=== PATIENT | male | born 2000 | race Caucasian/White ===

== ENCOUNTER 2019-10-27 18:54 | Emergency (ER) | payer OTHER ==
[2019-10-27 21:24] LABS: Urine Blood NEGATIVE (NEG); Urine Glucose NEGATIVE (NEG); Urine Protein NEGATIVE (NEG); Urine Specific Gravity 1.025 (1.005-1.030); Urine pH 7.5 (5.0-7.0)
--- NOTE | 2019-10-27 22:13 | ER ---
Nurse's Notes [facility] Name: Bryson Gibbons Age: 18 yrs Sex: Male : 2000 Arrival Date: 10/27/2019 Time: 18:58 Bed 5 Private MD: Diagnosis: Hydrocele and spermatocele Presentation: 10/26 19:01 Chief complaint: Patient states: Noticed lump to right testicle with discomfort for ll1 past 3 years. Went to ER, but never followed up. Came today for follow-up. Coronavirus screen: Proceed with normal triage. Patient denies a cough. Patient denies shortness of breath or difficulty breathing. Patient denies measured and/or subjective temperature greater than 100.4F prior to today's visit. Patient denies travel on a cruise ship or to a country the [facility] currently lists as an affected area. Patient denies contact with known and/or suspected case of COVID-19. Ebola Screen: Patient denies travel to an Ebola-affected area in the 21 days before illness onset. Initial Sepsis Screen: Does the patient meet any 2 criteria? HR > 90 bpm. No. Patient's initial sepsis screen is negative. Risk Assessment: Do you want to hurt yourself or someone else? Patient reports no desire to harm self or others. Onset of symptoms was October 25, 2016. 19:01 Method Of Arrival: Ambulatory 1 19:01 Acuity: AD 4 ll1 20:38 Initial Sepsis Screen: Does the patient have a suspected source of infection? No. jd3 Patient's initial sepsis screen is negative. Historical: - Allergies: 19:03 No Known Allergies; ll1 - Immunization history:: Adult Immunizations up to date, Flu vaccine is not up to date. - Social history:: Smoking status: Patient denies any tobacco usage or history of. Patient uses street drugs, marijuana, Patient/guardian denies using alcohol, street drugs, tobacco products. Screenin:38 Abuse screen: Denies threats or abuse. Nutritional screening: No deficits noted. jd3 Tuberculosis screening: No symptoms or risk factors identified. Fall Risk None identified. Assessment: 19:47 Reassessment: Patient appears in no apparent distress at this time. awaiting ultrasound sg at this time. 20:36 General: Appears in no apparent distress. uncomfortable, Behavior is calm, cooperative, jd3 appropriate for age. Pain: Complains of pain in groin Quality of pain is described as aching. Neuro: Level of Consciousness is awake, alert, obeys commands, Oriented to person, place, time, situation. Cardiovascular: Denies chest pain, Capillary refill < 3 seconds Patient's skin is warm and dry. Respiratory: Airway is patent Respiratory effort is even, unlabored, Respiratory pattern is regular, symmetrical. GI: No signs and/or symptoms were reported involving the gastrointestinal system. : Reports lump on the scrotum that has become uncomfortable. EENT: No signs and/or symptoms were reported regarding the EENT system. Derm: Skin is intact, Skin is dry, Skin is normal, Skin temperature is warm. Musculoskeletal: Circulation, motion, and sensation intact. Range of motion: intact in all extremities. 21:17 Reassessment: Patient appears in no apparent distress at this time. Patient and/or jd3 family updated on plan of care and expected duration. Pain level reassessed. Patient is alert, oriented x 3, equal unlabored respirations, skin warm/dry/pink. awaiting ultrasound. 21:46 Reassessment: Patient appears in no apparent distress at this time. Patient and/or jd3 family updated on plan of care and expected duration. Pain level reassessed. Patient is alert, oriented x 3, equal unlabored respirations, skin warm/dry/pink. Ultrasound at bedside. 22:38 Reassessment: Patient appears in no apparent distress at this time. Patient and/or jd3 family updated on plan of care and expected duration. Pain level reassessed. Patient is alert, oriented x 3, equal unlabored respirations, skin warm/dry/pink. Patient states feeling better. Vital Signs: 19:01 BP 138 / 84; Pulse 93; Resp 17; Temp 98.0; Pulse Ox 100% ; Pain 2/10; ll1 22:38 BP 120 / 78; Pulse 89; Resp 17 S; Pulse Ox 100% on R/A; jd3 ED Course: 18:58 Patient arrived in ED. ag5 19:03 Triage completed. ll1 19:04 Arm band placed on Patient placed in an exam room, on a stretcher. ll1 19:09 Siddharth Clement NP is PHCP. pm1 19:09 Jose Lou MD is Attending Physician. pm1 20:36 Prosper Villarreal, RHEA is Primary Nurse. jd3 20:38 Patient has correct armband on for positive identification. Bed in low position. Call jd3 light in reach. Side rails up X 1. Adult w/ patient. Pulse ox on. NIBP on. 22:12 Ricky Hernandez MD is Referral Physician. pm1 22:30 Primary Nurse role handed off by Prosper Villarreal RN sg 22:38 Prosper Villarreal RN is Primary Nurse. jd3 22:39 No provider procedures requiring assistance completed. Patient did not have IV access jd3 during this emergency room visit. 23:07 US Scrotum Testicles In Process Unspecified. EDMS 23:07 US Scrotum Testicles In Process Unspecified. EDMS Administered Medications: No medications were administered Outcome: 22:12 Discharge ordered by MD. pm1 22:39 Patient left the ED. sg 22:39 Discharged to home ambulatory, with family. jd3 22:39 Condition: stable 22:39 Discharge instructions given to patient, Instructed on discharge instructions, follow up and referral plans. Demonstrated understanding of instructions, follow-up care. Signatures: Dispatcher [employer] EDMS Geraldo Toledo RN RN sg Siddharth Clement, ADMISSIONS OFFICER ADMISSIONS OFFICER pm1 Grey Soares Prosper Villarreal, RHEA RN Yesi Tinsley ag5 Tylor Raphael RN RN ll1 Corrections: (The following items were deleted from the chart) 19:07 19:01 Chief complaint: Patient states: Noticed lump to right testicle with discomfort ll1 for past 3 years. Went to ER, but never followed up. ll1 20:51 20:51 Urine collected: oe oe 22:39 22:29 Patient left the ED. sg sg
--- NOTE | 2019-10-27 22:14 | EDPHYS ---
Physician Documentation [facility] Name: Bryson Gibbons Age: 18 yrs Sex: Male : 2000 Arrival Date: 10/27/2019 Time: 18:58 Bed 5 Private MD: ED Physician Jose Lou HPI: 10/26 19:45 This 18 yrs old Male presents to ER via Ambulatory with complaints of pm1 Testicular Pain. 19:45 The patient presents with tenderness, of the right testicle. Onset: The pm1 symptoms/episode began/occurred 3 year(s) ago, and became worse today. Modifying factors: The symptoms are alleviated by nothing, the symptoms are aggravated by nothing. Associated signs and symptoms: Pertinent negatives: abdominal pain, dysuria, fever, hematuria, nausea, vomiting. Severity of symptoms: in the emergency department the symptoms are actually worse. The patient has not recently seen a physician. Historical: - Allergies: 19:03 No Known Allergies; ll1 - Immunization history:: Adult Immunizations up to date, Flu vaccine is not up to date. - Social history:: Smoking status: Patient denies any tobacco usage or history of. Patient uses street drugs, marijuana, Patient/guardian denies using alcohol, street drugs, tobacco products. ROS: 19:45 Constitutional: Negative for fever, chills, and weight loss, Cardiovascular: Negative pm1 for chest pain, palpitations, and edema, Respiratory: Negative for shortness of breath, cough, wheezing, and pleuritic chest pain, Abdomen/GI: Negative for abdominal pain, nausea, vomiting, diarrhea, and constipation, Back: Negative for injury and pain. 19:45 : Positive for testicular pain scrotal mass, Negative for urinary symptoms, hematuria, burning with urination, penile discharge, penile pain. 19:45 All other systems are negative. Exam: 19:45 Constitutional: This is a well developed, well nourished patient who is awake, alert, pm1 and in no acute distress. Head/Face: Normocephalic, atraumatic. 19:45 Back: No spinal tenderness. No costovertebral tenderness. Full range of motion. 19:45 Skin: Warm, dry with normal turgor. Normal color with no rashes, no lesions, and no evidence of cellulitis. MS/ Extremity: Pulses equal, no cyanosis. Neurovascular intact. Full, normal range of motion. 19:45 Cardiovascular: Exam negative for acute changes, Rate: normal, Rhythm: regular, Pulses: no pulse deficits are appreciated. 19:45 Respiratory: Exam negative for acute changes, respiratory distress, shortness of breath. 19:45 Abdomen/GI: Exam negative for acute changes, Inspection: abdomen appears normal, Palpation: abdomen is soft and non-tender, in all quadrants, mass, is not appreciated, rebound tenderness, is not appreciated. 19:45 : Male external genitalia: penile discharge, is absent, tenderness, of the right side of scrotum, medial aspect is noted. 19:45 Neuro: Exam negative for acute changes, Orientation: is normal, Mentation: is normal, Motor: is normal, moves all fours, Gait: is steady, at a normal pace, without difficulty. Vital Signs: 19:01 BP 138 / 84; Pulse 93; Resp 17; Temp 98.0; Pulse Ox 100% ; Pain 2/10; ll1 22:38 BP 120 / 78; Pulse 89; Resp 17 S; Pulse Ox 100% on R/A; jd3 MDM: 19:10 Patient medically screened. pm1 22:12 Data reviewed: vital signs. Data interpreted: Pulse oximetry: on room air is 100 %. pm1 Interpretation: normal. Counseling: I had a detailed discussion with the patient and/or guardian regarding: the historical points, exam findings, and any diagnostic results supporting the discharge/admit diagnosis, radiology results, the need for outpatient follow up, a urologist, to return to the emergency department if symptoms worsen or persist or if there are any questions or concerns that arise at home. 10/26 20:55 Order name: Urine Dipstick--Ancillary (enter results); Complete Time: 21:40 mw2 10/26 19:18 Order name: US Scrotum Testicles pm1 10/26 19:18 Order name: Urine Dipstick-Ancillary (obtain specimen); Complete Time: 20:51 pm1 10/26 19:44 Order name: US Scrotum Testicles pm1 Administered Medications: No medications were administered Disposition: 23:53 Co-signature as Attending Physician, Jose Lou MD. rn Disposition: 10/27/19 22:12 Discharged to Home. Impression: Hydrocele and spermatocele. - Condition is Stable. - Discharge Instructions: Scrotal Masses. - Medication Reconciliation Form, Thank You Letter, Antibiotic Education, Prescription Opioid Use form. - Follow up: Emergency Department; When: As needed; Reason: Worsening of condition. Follow up: Ricky Hernandez MD; When: 2 - 3 days; Reason: Recheck today's complaints, Continuance of care, Re-evaluation by your physician. - Problem is new. - Symptoms have improved. Signatures: Dispatcher [employer] EDMS Geraldo Toledo RN RN sg Jose Lou MD MD rn Marinas, Patrick, DROP COUNT ASSOCIATE DROP COUNT ASSOCIATE pm1 Tylor Raphael RN RN ll1 Corrections: (The following items were deleted from the chart) 22:29 22:12 10/27/2019 22:12 Discharged to Home. Impression: Hydrocele and spermatocele. sg Condition is Stable. Forms are Medication Reconciliation Form, Thank You Letter, Antibiotic Education, Prescription Opioid Use. Follow up: Emergency Department; When: As needed; Reason: Worsening of condition. Follow up: Ricky Hernandez; When: 2 - 3 days; Reason: Recheck today's complaints, Continuance of care, Re-evaluation by your physician. Problem is new. Symptoms have improved. pm1 22:39 22:29 10/27/2019 22:12 Discharged to Home. Impression: Hydrocele and spermatocele. sg Condition is Stable. Discharge Instructions: Scrotal Masses. Forms are Medication Reconciliation Form, Thank You Letter, Antibiotic Education, Prescription Opioid Use. Follow up: Emergency Department; When: As needed; Reason: Worsening of condition. Follow up: Ricky Hernandez; When: 2 - 3 days; Reason: Recheck today's complaints, Continuance of care, Re-evaluation by your physician. Problem is new. Symptoms have improved. sg
[2019-10-27 22:44] VITALS: TEMP 98; O2SAT 100
[2019-10-27 22:45] VITALS: BP 120/78
--- NOTE | 2019-10-28 08:37 | RAD REPORT ---
EXAM DESCRIPTION: US - Scrotum Testicles - 10/27/2019 11:07 pm CLINICAL HISTORY: pain, swelling, r/o torsion Pain and swelling COMPARISON: No comparisons FINDINGS: The right testicle 4.7 x 2.1 cm. No intratesticular masses or evidence of testicular torsi on. The left testicle 4.1 x 2.2 cm. No intratesticular masses or evidence of testicular torsion. Both epididymides are normal in size and appearance. No pathologic fluid collections. IMPRESSION: Unremarkable study.
== END 2019-10-27 22:39 | disposition home or self-care (01) ==
LOC: ER 18:54
DX: N43.3 Hydrocele, unspecified (principal); N43.41 Spermatocele of epididymis, single
CPT/HCPCS: 76870; 81003; 99283

== ENCOUNTER 2020-05-13 16:07 | Emergency (ER) | payer OTHER ==
--- NOTE | 2020-05-13 18:01 | EDPHYS ---
Physician Documentation [facility] Name: Bryson Gibbons Age: 19 yrs Sex: Male : 2000 Arrival Date: 05/13/2020 Time: 16:18 Bed 13 Private MD: ED Physician Bryant Carnes HPI: 05/13 17:01 This 19 yrs old Male presents to ER via Ambulatory with complaints of Cough. kb 17:01 The patient or guardian reports cough, that is intermittent, described as mild, with no kb sputum. Onset: The symptoms/episode began/occurred 7 day(s) ago. Severity of symptoms: At their worst the symptoms were moderate, in the emergency department the symptoms are unchanged. Modifying factors: The symptoms are alleviated by nothing, the symptoms are aggravated by nothing. Associated signs and symptoms: Pertinent positives: fever. The patient has not experienced similar symptoms in the past. The patient has not recently seen a physician. Pt reports cough, fatigue, body aches, malaise, loss of taste and smell, fever for 7 days.. Historical: - Allergies: 16:21 No Known Allergies; bp - PMHx: 16:21 None; bp - Immunization history:: Adult Immunizations up to date. - Social history:: Smoking status: Patient denies any tobacco usage or history of. ROS: 17:00 Cardiovascular: Negative for chest pain, palpitations, and edema, Abdomen/GI: Negative kb for abdominal pain, nausea, vomiting, diarrhea, and constipation, Back: Negative for injury and pain, MS/Extremity: Negative for injury and deformity, Skin: Negative for injury, rash, and discoloration, Neuro: Negative for headache, weakness, numbness, tingling, and seizure. 17:00 Constitutional: Positive for body aches, chills, fatigue, fever, malaise. 17:00 ENT: Positive for loss of taste and smell. 17:00 Respiratory: Positive for cough, Negative for dyspnea on exertion, hemoptysis, orthopnea, pleurisy, shortness of breath, sputum production, wheezing. Exam: 17:01 Constitutional: This is a well developed, well nourished patient who is awake, alert, kb and in no acute distress. Head/Face: Normocephalic, atraumatic. Chest/axilla: Normal chest wall appearance and motion. Nontender with no deformity. No lesions are appreciated. Cardiovascular: Regular rate and rhythm with a normal S1 and S2. No gallops, murmurs, or rubs. Normal PMI, no JVD. No pulse deficits. Respiratory: Lungs have equal breath sounds bilaterally, clear to auscultation and percussion. No rales, rhonchi or wheezes noted. No increased work of breathing, no retractions or nasal flaring. Abdomen/GI: Soft, non-tender, with normal bowel sounds. No distension or tympany. No guarding or rebound. No evidence of tenderness throughout. Skin: Warm, dry with normal turgor. Normal color with no rashes, no lesions, and no evidence of cellulitis. MS/ Extremity: Pulses equal, no cyanosis. Neurovascular intact. Full, normal range of motion. Neuro: Awake and alert, GCS 15, oriented to person, place, time, and situation. Cranial nerves II-XII grossly intact. Motor strength 5/5 in all extremities. Sensory grossly intact. Cerebellar exam normal. Normal gait. Vital Signs: 16:19 BP 121 / 75; Pulse 75; Resp 17; Temp 98; Pulse Ox 99% ; bp MDM: 16:20 Patient medically screened. kb 17:01 Data reviewed: vital signs, nurses notes. Data interpreted: Pulse oximetry: on room air kb is 99 %. Interpretation: normal. Counseling: I had a detailed discussion with the patient and/or guardian regarding: the historical points, exam findings, and any diagnostic results supporting the discharge/admit diagnosis, lab results, the need for outpatient follow up, a family practitioner, to return to the emergency department if symptoms worsen or persist or if there are any questions or concerns that arise at home. 05/13 18:04 Order name: COVID-19/FLU A+B; Complete Time: 18:05 EDMS Administered Medications: No medications were administered Disposition: 05/13/20 18:00 Discharged to Home. Impression: Coronavirus infection, unspecified. - Condition is Stable. - Discharge Instructions: Viral Respiratory Infection, [id number], COVID-19. - Medication Reconciliation Form, Thank You Letter, Antibiotic Education, Prescription Opioid Use, Work release form form. - Follow up: Emergency Department; When: As needed; Reason: Worsening of condition. Follow up: Private Physician; When: 2 - 3 days; Reason: Recheck today's complaints, Continuance of care, Re-evaluation by your physician. Addendum: 05/15/2020 07:33 Co-signature as Attending Physician, Bryant Carnes MD I agree with the assessment and t w4 plan of care. Signatures: Dispatcher [employer] EDCO J CarlosStivenRenetta, CARDING UTILITY TENDER-C CARDING UTILITY TENDER-Yoni Moya, RN RN Bryant Dunn MD MD tw4 Corrections: (The following items were deleted from the chart) 05/13 16:57 16:21 CORONAVIRUS+MR.LAB.BRZ ordered. EDCO EDCO 16:58 16:21 Influenza Screen (A \T\ B)+BA.LAB.BRZ ordered. [facility] EDCO 18:12 18:00 05/13/2020 18:00 Discharged to Home. Impression: Coronavirus infection, bp unspecified. Condition is Stable. Forms are Medication Reconciliation Form, Thank You Letter, Antibiotic Education, Prescription Opioid Use. Follow up: Emergency Department; When: As needed; Reason: Worsening of condition. Follow up: Private Physician; When: 2 - 3 days; Reason: Recheck today's complaints, Continuance of care, Re-evaluation by your physician. kb
--- NOTE | 2020-05-13 18:01 | ER ---
Nurse's Notes [facility] Name: Bryson Gibbons Age: 19 yrs Sex: Male : 2000 Arrival Date: 05/13/2020 Time: 16:18 Bed 13 Private MD: Diagnosis: Coronavirus infection, unspecified Presentation: 05/13 16:19 Chief complaint: Patient states: RECENT COVID EXPOSURE. Coronavirus screen: cough bp unrelated to allergies, Client presents with at least one sign or symptom that may indicate coronavirus-19. Standard/surgical mask placed on the client. Provider contacted for isolation considerations. Ebola Screen: No symptoms or risks identified at this time. Initial Sepsis Screen: Does the patient meet any 2 criteria? No. Patient's initial sepsis screen is negative. Does the patient have a suspected source of infection? No. Patient's initial sepsis screen is negative. Risk Assessment: Do you want to hurt yourself or someone else? Patient reports no desire to harm self or others. Onset of symptoms is unknown. 16:19 Method Of Arrival: Ambulatory bp 16:19 Acuity: AD 4 bp Triage Assessment: 16:21 General: Appears in no apparent distress. comfortable, Behavior is calm, cooperative, bp appropriate for age. Pain: Denies pain. EENT: No deficits noted. Neuro: No deficits noted. Cardiovascular: No deficits noted. Respiratory: Reports cough that is. GI: No signs and/or symptoms were reported involving the gastrointestinal system. : No signs and/or symptoms were reported regarding the genitourinary system. Derm: No deficits noted. Musculoskeletal: No deficits noted. Historical: - Allergies: 16:21 No Known Allergies; bp - PMHx: 16:21 None; bp - Immunization history:: Adult Immunizations up to date. - Social history:: Smoking status: Patient denies any tobacco usage or history of. Screenin:22 Abuse screen: Denies threats or abuse. Denies injuries from another. Nutritional bp screening: No deficits noted. Tuberculosis screening: No symptoms or risk factors identified. Fall Risk None identified. Assessment: 16:22 General: SEE TRIAGE NOTE. bp 18:11 Reassessment: PT D/C HOME AMBULATORY WITH FAMILY, DX WITH COVID. bp Vital Signs: 16:19 BP 121 / 75; Pulse 75; Resp 17; Temp 98; Pulse Ox 99% ; bp ED Course: 16:18 Patient arrived in ED. bp 16:19 Renetta Whitman FNP-C [facility]. bp 16:19 Yoni Reich, RN is Primary Nurse. bp 16:19 Bryant Carnes MD is Attending Physician. bp 16:20 Triage completed. bp 16:21 Arm band placed on. bp 16:22 Patient has correct armband on for positive identification. Bed in low position. Call bp light in reach. Side rails up X2. Adult w/ patient. 16:23 No provider procedures requiring assistance completed. Patient did not have IV access bp during this emergency room visit. 16:56 COVID swab sent to lab. Flu and/or RSV swab sent to lab. jp3 Administered Medications: No medications were administered Outcome: 18:00 Discharge ordered by . kb 18:11 Discharged to home ambulatory, with family. bp 18:11 Condition: stable 18:11 Discharge instructions given to patient, family, Instructed on discharge instructions, follow up and referral plans. Demonstrated understanding of instructions, follow-up care. 18:12 Patient left the ED. bp Signatures: Renetta Whitman FNP-C FNP-Yoni Moya, RN RN bp Fermín Harris jp3
[2020-05-13 18:04] LABS: SARS-COV-2 RT PCR POSITIVE (NEGATIVE)
[2020-05-13 18:16] VITALS: BP 121/75; TEMP 98; O2SAT 99
== END 2020-05-13 18:12 | disposition home or self-care (01) ==
LOC: ER 16:07
DX: U07.1 COVID-19 (principal)
CPT/HCPCS: 0240U; 99283